=== PATIENT | male | born 1950 | race Caucasian/White ===

== ENCOUNTER 2018-10-16 07:08 | Observation (INO) | payer MEDICARE, OTHER ==
[2018-10-08 10:42] LABS: BASOPHILS % 0.3 % (0.0-1.0); EOSINOPHILS # (AUTO) 0.1 (0.0-0.4); HEMOGLOBIN 13.1 g/dL (14.0-18.0); LYMPHOCYTES # (AUTO) 1.4 (1.0-3.2); LYMPHOCYTES % 21.3 % (18.0-39.1); MEAN CORPUSCULAR HEMOGLOBIN 29.8 pg (28-32); MEAN CORPUSCULAR HGB CONC 32.8 g/dL (31-35); MEAN CORPUSCULAR VOLUME 91.1 fL (81-99); MONOCYTES # (AUTO) 0.5 (0.2-0.8); MONOCYTES % 7.9 % (4.4-11.3); NEUTROPHILS # (AUTO) 4.7 (2.1-6.9); NEUTROPHILS % 69.2 % (38.7-80.0); PLATELET COUNT 244 x10e3/uL (140-360); RED BLOOD COUNT 4.39 x10e6/uL (4.3-5.7); RED CELL DISTRIBUTION WIDTH 12.2 % (11.7-14.4)
[2018-10-08 11:02] LABS: ANION GAP 14.8 mmol/L (8-16); BLOOD UREA NITROGEN 23 mg/dL (7-26); BUN/CREATININE RATIO 22 (6-25); CALCIUM 10.2 mg/dL (8.4-10.2); CARBON DIOXIDE 28 mmol/L (22-29); CHLORIDE 103 mmol/L (98-107); CREATININE, SERUM 1.03 mg/dL (0.72-1.25); EST GLOMERULAR FILTRATION RATE > 60 ML/MIN (60-); GLUCOSE 144 mg/dL (74-118); POTASSIUM 4.8 mmol/L (3.5-5.1); SODIUM 141 mmol/L (136-145)
--- NOTE | 2018-10-08 11:03 | Diagnostic Imaging Report ---
Chest, 2 views, 10/08/2018. History: Preop, prostate surgery. Comparison: None available. Findings: The cardiomediastinal silhouette and pulmonary vasculature are within normal limits. The lungs are clear without evidence of consolidation or pleural effusion. Degenerative changes are noted throughout the thoracic spine. There are no acute osseous or soft tissue abnormalities. Impression: No acute cardiopulmonary abnormality. Signed by: Elías Otto on 10/08/2018 11:00 AM
[2018-10-08 11:22] LABS: INR 0.86; PROTHROMBIN TIME 12.2 seconds (11.9-14.5)
[~2018-10-16] VITALS: Ht 177.8 cm; Wt 85.4 kg
[~2018-10-16 07:08] MED LIST: AMLODIPINE BESY10 MG PO; CRESTOR10 MG PO; FLOMAX0.4 MG PO; HYDRALAZINE HCL10 MG PO; LOSARTAN-HCTZ1 EAC1 PO; METFORMIN HCL850 MG PO; PIOGLITAZONE HC45 MG PO
--- OUTSIDE RECORDS SUMMARY | 2018-10-16 07:11 | XMS REPORT ---
Author Author [facility] Address Unknown Phone Unavailable Care Team Providers Care Tow Truck Driver Name Role Phone Lamar HUBBARD Unavailable Unavailable Problems This patient has no known problems. Allergies, Adverse Reactions, Alerts This patient has no known allergies or adverse reactions. Medications This patient has no known medications. Results Test Description Test Time Test Comments Text Results Atomic Results Result Comments CHEST 2 VIEWS 2018-10-08 11:00:00 [facility] [address] [address] Patient Name: NGOC BROOKS MR #: [id number] : 1950 Age/Sex: 67/M Req #: [id number] Adm Physician: Ordered by: LUIS WATT MD Report #: [id number] Location: OR Room/Bed: Procedure: [id number] DX/CHEST 2 VIEWS Exam Date: 10/08/18 Exam Time: 1044 REPORT STATUS: Signed Chest, 2 views, 10/08/2018. History: Preop, prostate surgery. Comparison: None available. Findings: The cardiomediastinal silhouette and pulmonary vasculature are within normal limits. The lungs are clear without evidence of consolidation or pleural effusion. Degenerative changes are noted throughout the thoracic spine. There are no acute osseous or soft tissue abnormalities. Impression: No acute cardiopulmonary abnormality. Signed by: Tawanda Otto on 10/08/2018 11:00 AM Dictated By: TAWANDA OTTO MD 99 Transcribed By: MICHI on 10/08/181099 COPY TO: LUIS WATT MD
--- OUTSIDE RECORDS SUMMARY | 2018-10-16 07:11 | XMS REPORT | Clinical Summary ---
Author Author [facility] Organization [facility] Address Unknown Phone Unavailable Care Team Providers Care Customer Care Assistant Name Role Phone Carrie Robins MD PCP Allergies No Known Allergies Medications End Date Status Medication Sig Dispensed Refills Start Date Active meloxicam (MOBIC) 15 mg TAKE 1 90 tablet 0 tablet TABLET(15 MG) 8 BY MOUTH DAILY 12/27/2017 Discontinued (Reorder) meloxicam (MOBIC) 15 mg Take 1 tablet 30 tablet 0 tablet (15 mg total) 8 by mouth daily. Active Problems No known active problems Encounters Care Team Description Date Type Specialty Chato Manriquez MD Enlarged prostate with urinary obstruction (Primary Dx) 07/29/2018 Transcribe Access Orders Demetrius Miles MD 12/27/2017 Refill Orthopedic Surgery Demetrius Miles MD Knee effusion, right (Primary Dx); Acute pain of right knee; Primary localized osteoarthrosis of right lower leg; Peripheral tear of medial meniscus of right knee as current injury, initial encounter 11/29/2017 Office Visit Orthopedic Surgery Demetrius Miles MD Acute pain of right knee (Primary Dx); Knee effusion, right; Peripheral tear of medial meniscus of right knee as current injury, initial encounter; Primary localized osteoarthrosis of right lower leg 11/06/2017 Office Visit Orthopedic Surgery after 10/15/2017 Family History Medical History Relation Name Comments Diabetes Brother Heart disease Father Stroke Father Stroke Mother Relation Name Status Comments Brother Father Mother Social History Date Tobacco Use Types Packs/Day Years Used Never Smoker Smokeless Tobacco: Snuff Current User Sex Assigned at Date Recorded Not on file Industry Job Start Date Occupation Not on file Not on file Not on file Travel End Travel History Travel Start No recent travel history available. Last Filed Vital Signs Reading Time Taken Comments Vital Sign - - Blood Pressure - - Pulse - - Temperature - - Respiratory Rate - - Oxygen Saturation - - Inhaled Oxygen Concentration 89.4 kg (197 lb) 11/29/2017 9:39 AM CDT Weight 175.3 cm (5' 9") 11/29/2017 9:39 AM CDT Height 29.09 11/29/2017 9:39 AM CDT Body Mass Index Plan of Treatment Health Maintenance Due Date Last Done Comments COLONOSCOPY SCREENING 1998 SHINGLES VACCINES (#1) 1998 65+ PNEUMOCOCCAL VACCINE 2013 (1 of 2 - PCV13) INFLUENZA VACCINE 09/19/2018 Procedures Comments Procedure Name Priority Date/Time Associated Diagnosis US RENAL Routine 08/02/2018 Enlarged prostate with 11:37 AM CDT urinary obstruction US PROSTATE Routine 08/02/2018 Enlarged prostate with 11:36 AM CDT urinary obstruction XR KNEE 4+ VW RIGHT Routine 11/06/2017 Right knee pain, 3:01 PM CDT unspecified chronicity [place] ARTHROCENTESIS Routine 11/06/2017 Peripheral tear of medial ASPIR&/INJ MAJOR JT/BURSA 2:45 PM CDT meniscus of right knee as W/O US current injury, initial encounter after 10/15/2017 Results * US Renal (08/02/2018 11:37 AM CDT) Specimen Narrative Performed At EXAMINATION:US RENAL [facility] CLINICAL HISTORY:N40.1 Benign prostatic hyperplasia with lower urinary tract symptoms, N13.8 Other obstructive and reflux uropathy, N40.1 LOWER OBSTRUCTION COMPARISON:None. TECHNIQUE:Ultrasound evaluation of the kidneys and bladder. Findings: 1.The right kidney measures 10.5 x 5.6 x 7.4 cm.The left kidney measures 11.7 x 5.5 x 5.4 cm.Renal cortical echogenicity is at the upper limits of normal. 2.No hydronephrosis or solid mass lesions. 3.Small post void residual of 14 mL's. Bladder is otherwise unremarkable. IMPRESSION: 1.Unremarkable renal ultrasound. [id number] Procedure Note Hm Interface, Radiology Results Incoming - 08/02/2018 11:58 AM CDT EXAMINATION: US RENAL CLINICAL HISTORY: N40.1 Benign prostatic hyperplasia with lower urinary tract symptoms, N13.8 Other obstructive and reflux uropathy, N40.1 LOWER OBSTRUCTION COMPARISON: None. TECHNIQUE: Ultrasound evaluation of the kidneys and bladder. Findings: 1. The right kidney measures 10.5 x 5.6 x 7.4 cm. The left kidney measures 11.7 x 5.5 x 5.4 cm. Renal cortical echogenicity is at the upper limits of normal. 2. No hydronephrosis or solid mass lesions. 3. Small post void residual of 14 mL's. Bladder is otherwise unremarkable. IMPRESSION: 1. Unremarkable renal ultrasound. [id number] Performing Organization Address City/State/Zipcode Phone Number [facility] [address] [place] [address] * US Prostate (08/02/2018 11:36 AM CDT) Specimen Narrative Performed At PROCEDURE:US PROSTATE [facility] CLINICAL HISTORY:N40.1 Benign prostatic hyperplasia with lower urinary tract symptoms, N13.8 Other obstructive and reflux uropathy, N40.1 COMPARISON:None. TECHNIQUE: A transrectal examination of the prostate gland was performed in transverse and sagittal views with color-flow Doppler interrogation. The seminal vesicles were also interrogated. FINDINGS: The prostate gland measures 6.1 x 5.2 x 4.2, for an estimated volume of 69.2 mL. The prostatic parenchyma is heterogeneous in echotexture. There is a 5 x 5 x 4 mm nonspecific cystic focus within the left lower prostatic parenchyma. There is no definite suspicious solid lesion identified within the limitations of sonographic technique. There is no gross abnormality of the visualized seminal vesicles. IMPRESSION: Prostatomegaly, likely related to benign prostatic hyperplasia. [id number] Procedure Note Interface, Radiology Results Incoming - 08/02/2018 4:58 PM CDT PROCEDURE: US PROSTATE CLINICAL HISTORY: N40.1 Benign prostatic hyperplasia with lower urinary tract symptoms, N13.8 Other obstructive and reflux uropathy, N40.1 COMPARISON: None. TECHNIQUE: A transrectal examination of the prostate gland was performed in transverse and sagittal views with color-flow Doppler interrogation. The seminal vesicles were also interrogated. FINDINGS: The prostate gland measures 6.1 x 5.2 x 4.2, for an estimated volume of 69.2 mL. The prostatic parenchyma is heterogeneous in echotexture. There is a 5 x 5 x 4 mm nonspecific cystic focus within the left lower prostatic parenchyma. There is no definite suspicious solid lesion identified within the limitations of sonographic technique. There is no gross abnormality of the visualized seminal vesicles. IMPRESSION: Prostatomegaly, likely related to benign prostatic hyperplasia. [id number] Performing Organization Address City/[facility] Phone Number [facility] [address] [place] [address] * XR Knee 4+ Vw Right (11/06/2017 3:01 PM CDT) Specimen Narrative Performed At [facility] 4 views of the right knee shows the patient has moderate narrowing of medial compartment on the Driver view, no fractures noted. No significant patellofemoral arthritic changes present. Performing Organization Address [facility] Phone Number [facility] [address] [place] [address] * Large Joint Arthrocentesis (11/06/2017 2:45 PM CDT) Narrative Performed At Demetrius Miles MD 11/06/20173:48 PM Large Joint Arthrocentesis Consent given by: patient Supporting Documentation Indications: pain Procedure Details Location: knee - R knee Right side: Needle size: 22 G Approach: anteromedial Right knee medications administered: 3 mL lidocaine 10 mg/mL (1 %); 1 mL triamcinolone acetonide 40 mg/mL Patient tolerance: patient tolerated the procedure well with no immediate complications after 10/15/2017 Insurance Type Payer Benefit Subscriber ID Effective Phone Address Plan / Dates Group HMO [facility] MEDICARE [facility] xxxxxxxxx 2018-P MEDICARE resent HMO/PPO Advance Directives For more information, please contact: [phone] 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
[2018-10-16] MEDS ORDERED: HYOSCYAMINE 0.125 MG TAB ONE (07:33)
[2018-10-16] MEDS ORDERED: SODIUM CHLORIDE 0.9% 1000ML 1,000 ML ONE (07:33)
[2018-10-16] MEDS ORDERED: LEVOFLOXACIN 500MG/D5W 100ML 100 ML IV ONE (07:33)
[2018-10-16] MEDS ORDERED: ONDANSETRON HCL INJ 2MG/ML 2ML 2 MG/ML VIAL IV PRN (11:15)
[2018-10-16] MEDS ORDERED: HYDROMORPHONE 1MG/1ML INJ IV PRN (11:15)
[2018-10-16] MEDS: SODIUM CHLORIDE 0.9% 1000ML 1,000 ML IV SCH ×2 (11:15→19:15)
[2018-10-16] MEDS ORDERED: ACETAMINOPHEN 325 MG TAB PO PRN (11:30)
--- OUTSIDE RECORDS SUMMARY | 2018-10-16 11:34 | XMS REPORT | Clinical Summary ---
Author Author [facility] Organization [facility] Address Unknown Phone Unavailable Care Team Providers Care Drupal Developer Name Role Phone Carrie Robins MD PCP [...] knee pain, 3:01 PM CDT unspecified chronicity [place] ARTHROCENTESIS Routine 11/06/2017 Peripheral tear of medial [...] is otherwise unremarkable. IMPRESSION: 1.Unremarkable renal ultrasound. [id number] Procedure Note Hm Interface, Radiology Results Incoming [...] otherwise unremarkable. IMPRESSION: 1. Unremarkable renal ultrasound. [id number] Performing Organization Address City/State/Zipcode Phone Number [facility] [address] [place] [address] * US Prostate (08/02/2018 11:36 AM CDT) Specimen Narrative Performed At PROCEDURE:US PROSTATE [facility] CLINICAL HISTORY:N40.1 Benign prostatic hyperplasia with lower [...] Prostatomegaly, likely related to benign prostatic hyperplasia. [id number] Procedure Note Interface, Radiology Results Incoming - [...] Prostatomegaly, likely related to benign prostatic hyperplasia. [id number] Performing Organization Address City/[facility] Phone Number [facility] [address] [place] [address] * XR Knee 4+ Vw Right (11/06/2017 3:01 PM CDT) Specimen Narrative Performed At [facility] 4 views of the right knee shows the patient has moderate narrowing of medial compartment on the Driver view, no fractures noted. No significant patellofemoral arthritic changes present. 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
[2018-10-16] MEDS ORDERED: ACETAMINOPHEN 325 MG TAB ONE (12:10)
[2018-10-16 13:45] VITALS: BP 157/82
--- NOTE | 2018-10-16 13:45 | NUR ---
received pt from PACU via stretcher. AAOx4, Resp even and unlabored. mora cath in place with continuos irrigation with NS. denies pain at this time. oriented to room and use of call light. call light within reach. NS with 125ml/hr to left hand 20G.
[2018-10-16 14:00] VITALS: BP 157/82
[2018-10-16] MEDS ORDERED: METOPROLOL TART50 MG PO (15:01)
--- NOTE | 2018-10-16 15:22 | Operative Report ---
DATE OF PROCEDURE: 10/16/2018 SURGEON: Chato Manriquez MD PREOPERATIVE DIAGNOSIS: Benign prostatic hyperplasia. POSTOPERATIVE DIAGNOSIS: Benign prostatic hyperplasia. OPERATION: 1. Cystourethroscopy. 2. TURP laser XPS. ANESTHETIC: General. INDICATIONS FOR PROCEDURE: Mr. Ferrer is a 67-year-old male who was referred with a chief complaint of significant lower urinary tract obstructive symptoms. Rectal exam showed an enlarged prostate gland about 40 to 50 g smooth, firm and benign. His PSA was normal. This patient was placed on the table in the lithotomy position and was prepped and draped in a sterile manner after satisfactory anesthesia. A #23.5 cystoresectoscope was used and cystourethroscopy was performed and it was noted that the urethra was normal. The prostatic urethra was about 3.5 cm to 4 cm trilobar and occlusive. Cystoscopy was then performed using both right angle and foroblique lens and it was noted that the bladder mucosa was normal. There was no evidence of gross tumor pathology or any papillary lesions. The bladder wound was mildly trabeculated. The XPS laser scope generator was then started starting at 120 garcia vaporization level and 40 garcia coagulation level. Vaporization of the median lobe was done and flattening it down to the level of the floor of the prostatic fossa. Vaporization was then started starting at 12 o' clock position vaporizing the anterior tissue. Vaporization was then started from 1 to 5 o' clock again starting at the bladder neck to just proximal to the verumontanum and down to the capsular fibers. Hemostasis was obtained all through and was very adequate. Vaporization was then started again starting from 11 to 7 o' clock starting at the bladder neck to just proximal to the verumontanum and down to the capsular fibers. Again, hemostasis was very adequate. At the termination of the procedure, it was noted that the bladder mucosa, the prostatic fossa and the sphincter were intact without laser energy damage. Hemostasis was complete. The laser scope generator was shut down. The cystoresectoscope was removed and a #22 Lithuanian catheter was placed. Estimated blood loss was 0 mL. Plans for this patient is to be admitted for 23 hours observation. He will be discharged home tomorrow on Levaquin 500 mg once a day for 1 week. Ultracet tablet 1 every 6 hours p.r.n. He is to return to the office on Sunday for follow up. MD CASEY Brooks /[id number]
[2018-10-16 16:50] VITALS: BP 145/70
[2018-10-16] MEDS ORDERED: MIDAZOLAM HCL 2 MG/2 ML VIAL ONE (18:49)
[2018-10-16] MEDS ORDERED: FENTANYL CITRATE/PF 100MCG/2 ML INJ ONE (18:49)
[2018-10-16] MEDS ORDERED: ONDANSETRON HCL INJ 2MG/ML 2ML 2 MG/ML VIAL ONE (18:50)
[2018-10-16] MEDS ORDERED: PROPOFOL IV EMULSION 10 MG/ML 20 ML VIAL ONE (18:50)
[2018-10-16] MEDS ORDERED: LIDOCAINE HCL 2% LOCAL INJ 5 ML SDV VIAL INJ ONE (18:50)
[2018-10-16] MEDS ORDERED: DEXAMETHASONE SOD PHOS INJ 4 MG/ML VIAL ONE (18:50)
[2018-10-16] MEDS ORDERED: SEVOFLURANE INHAL SOLN 250 ML PEN BTL ONE (18:50)
--- NOTE | 2018-10-16 18:58 | NUR ---
Walking rounds done. Patient is awake, alert, and able to make needs known. POC discussed. CBI infusing and urine is light yellow in color. Patient instructed to call for assistance as needed and verbalized understanding. Call toney within reach.
[2018-10-16 20:00] VITALS: BP 144/67
[2018-10-16 20:38] VITALS: BP 145/70
[2018-10-17] VITALS: BP 150/68
[2018-10-17 04:00] VITALS: BP 134/63
[2018-10-17] MEDS: SODIUM CHLORIDE 0.9% 1000ML 1,000 ML IV SCH ×2 (04:57→11:15)
[2018-10-17 05:42] LABS: BASOPHILS % 0.1 % (0.0-1.0); HEMATOCRIT 33.1 % (38.2-49.6); HEMOGLOBIN 11.1 g/dL (14.0-18.0); LYMPHOCYTES # (AUTO) 1.3 (1.0-3.2); LYMPHOCYTES % 11.9 % (18.0-39.1); MEAN CORPUSCULAR HEMOGLOBIN 30.2 pg (28-32); MEAN CORPUSCULAR HGB CONC 33.5 g/dL (31-35); MEAN CORPUSCULAR VOLUME 90.2 fL (81-99); MONOCYTES # (AUTO) 0.7 (0.2-0.8); MONOCYTES % 6.2 % (4.4-11.3); NEUTROPHILS # (AUTO) 9.1 (2.1-6.9); NEUTROPHILS % 81.3 % (38.7-80.0); PLATELET COUNT 206 x10e3/uL (140-360); RED BLOOD COUNT 3.67 x10e6/uL (4.3-5.7)
[2018-10-17 05:58] LABS: ANION GAP 11.8 mmol/L (8-16); BLOOD UREA NITROGEN 24 mg/dL (7-26); BUN/CREATININE RATIO 20 (6-25); CALCIUM 9.1 mg/dL (8.4-10.2); CARBON DIOXIDE 24 mmol/L (22-29); CHLORIDE 107 mmol/L (98-107); CREATININE, SERUM 1.19 mg/dL (0.72-1.25); EST GLOMERULAR FILTRATION RATE > 60 ML/MIN (60-); GLUCOSE 185 mg/dL (74-118); POTASSIUM 3.8 mmol/L (3.5-5.1); SODIUM 139 mmol/L (136-145)
--- NOTE | 2018-10-17 07:00 | NUR ---
BEDSIDE SHIFT REPORT RECEIVED FROM NIGHT RN. PT DENIES NEEDS AT THIS TIME.
[2018-10-17] MEDS ORDERED: LEVOFLOXACIN 500MG/D5W 100ML 100 ML IV SCH (08:00)
[2018-10-17 08:14] VITALS: BP 139/67
[2018-10-17 09:00] VITALS: BP 139/67
[2018-10-17 11:43] VITALS: BP 152/73
[2018-10-17] MEDS ORDERED: LEVAQUIN500 MG PO (14:42)
[2018-10-17] MEDS ORDERED: ULTRAM50 MG PO (14:46)
[2018-10-17 15:58] VITALS: BP 167/77
== END 2018-10-17 15:34 | disposition home or self-care (01) ==
LOC: OR 07:08 → PACU V 10:53 → MED/SURG 13:50
PROVIDERS: ADMIT Specialist; ATTEND Specialist
DX: N40.1 Benign prostatic hyperplasia with lower urinary tract symptoms (principal); I10 Essential (primary) hypertension; R73.03 Prediabetes
CPT/HCPCS: 36415 ×3; 52648; 71046; 80048 ×2; 82948 ×2; 85025 ×2; 85610; 93005; G0378 ×2; J1100; J1956 ×2; J2001; J2250; J2405; J2704; J3010; J7030